=== PATIENT | female | born 1950 | race Caucasian/White ===

== ENCOUNTER 2016-12-28 06:25 | Day surgery (SDC) | payer MEDICARE, OTHER ==
[~2016-12-28 06:25] MED LIST: OGEN1.5 MG PO; PRAVACHOL40 MG PO; PRAVASTATIN SOD40 M1 PO; SYNTHROID125 MC1 PO; SYNTHROID25 MCG PO; TOPROL XL100 M1; TOPROL XL100 M1 PO; TOPROL XL50 MG PO; TYLENOL325 MG PO; VITAMIN D2000 UNIT PO; ZYRTEC10 M3 PO; ZYRTEC10 M7 PO; [UNRECOGNIZED DRUG - OTHER] PO
[2016-12-28 07:13] LABS: BASO % 0.5 % (0-2); EOS % 1.9 % (0-7); EOSINOPHIL ABSOLUTE COUNT 0.1 tho/cmm (0.0-0.7); HCT-HEMATOCRIT 39.9 % (34.0-49.0); HGB-HEMOGLOBIN 13.6 gm/dl (12.0-15.5); LYMPH % 29.5 % (20-45); LYMPH ABSOLUTE COUNT 1.7 tho/cmm (0.8-4.5); MCH (MEAN CORPUSCULAR HGB) 31.6 pg (28.0-32.0); MCHC MEAN CORPUSCULAR HGB CONC 34.1 % (32.0-36.0); MCV (MEAN CELL VOLUME) 92.6 fl (82.0-96.0); MEAN PLATELET VOLUME 9.3 cmc (9.4-12.4); MONO % 8.3 % (0-12); MONOCYTE ABSOLUTE COUNT 0.5 tho/cmm (0.0-1.2); NEUTROPHIL ABSOLUTE COUNT 3.4 tho/cmm (1.6-8.0); NEUTROPHIL-AUTOMATED 3.4 tho/cmm (1.6-8.0); NEUTROPHILS % 59.8 % (40-80); PLATELET COUNT 215 tho/cmm (150-450); RED BLOOD COUNT 4.31 mil/cmm (4.00-5.20); RED CELL DISTRIBUTION WIDTH 12.7 % (12.4-16.4); WHITE BLOOD COUNT 5.7 tho/cmm (4.0-10.0)
[2016-12-28 07:28] LABS: ALB/GLOB RATIO 1.2 (0.8-2.0); ALBUMIN 4.1 g/dl (3.5-5.0); ALKALINE PHOSPHATASE 89 U/L (33-138); ALT/SGPT 22 U/L (12-78); ANION GAP 9 mmol/L (0-20); AST/SGOT 17 U/L (10-40); BILIRUBIN,TOTAL 0.5 mg/dl (0-1.5); BLOOD UREA NITROGEN 17 mg/dl (6-24); CALCIUM 8.6 mg/dl (8.5-10.5); CARBON DIOXIDE-VENOUS 29 mmol/L (22-32); CHLORIDE 108 mmol/l (96-110); CREATININE 0.77 mg/dl (0.50-1.10); GLUCOSE 101 mg/dL (70-110); POTASSIUM 3.8 mmol/L (3.7-5.1); SODIUM 142 mmol/L (135-145); eGFR VALUE FOR BLACK >90 mL/Min
[2016-12-29] MEDS ORDERED: PERCOCET 5-3251 EACH PO (00:37)
== END 2016-12-29 10:10 ==
LOC: WSU 06:25 → SHSC 06:27 → ORW 07:58 → PACU 08:56 → OBGF 10:20
PROVIDERS: Obstetrics & Gynecology
PROC: 0JQC0ZZ Repair Pelvic Region Subcutaneous Tissue and Fascia, Open Approach (ICD-10-PCS; principal; 2016-12-28)
PROC: 0JQC0ZZ Repair Pelvic Region Subcutaneous Tissue and Fascia, Open Approach (ICD-10-PCS; 2016-12-28)
PROC: 0TSD0ZZ Reposition Urethra, Open Approach (ICD-10-PCS; 2016-12-28)
DX: N81.11 Cystocele, midline (principal); N81.6 Rectocele; N39.3 Stress incontinence (female) (male); N36.8 Other specified disorders of urethra; I10 Essential (primary) hypertension; E78.00 Pure hypercholesterolemia, unspecified; E03.9 Hypothyroidism, unspecified; Z79.899 Other long term (current) drug therapy; Z91.018 Allergy to other foods; Z90.710 Acquired absence of both cervix and uterus; Z90.49 Acquired absence of other specified parts of digestive tract; Z90.89 Acquired absence of other organs; Z98.890 Other specified postprocedural states
CPT/HCPCS: C1771; J0690; J0780; J1170; J2405; J3010; J7030; J7121